=== PATIENT | female | born 1980 | race Caucasian/White ===

== ENCOUNTER → 2016-11-15 | Outpatient (CLI) | payer BC ==
[~2016-11-15] MED LIST: ENAL20TA PO; TPRSR/50 PO
== END | disposition home or self-care (01) ==
LOC: C.PAPS 13:44
PROVIDERS: ATTEND Obstetrics & Gynecology
DX: Z01.419 Encounter for gynecological examination (general) (routine) without abnormal findings (principal)

== ENCOUNTER → 2017-05-27 | Outpatient (CLI) | payer BC | END | disposition home or self-care (01) | LOC: C.LAB 14:15 | PROVIDERS: ATTEND Urology | DX: N26.1 Atrophy of kidney (terminal) (principal); N13.30 Unspecified hydronephrosis; N39.0 Urinary tract infection, site not specified ==